=== PATIENT | male | born 1970 | race Caucasian/White ===

== ENCOUNTER 2017-06-02 10:12 | Observation (INO) | payer OTHER ==
[2017-06-02] MEDS ORDERED: Iohexol 240 (50 ml) PO STA (11:10)
--- NOTE | 2017-06-02 11:18 | C.PDOC ---
History Of Present Illness 47 year old male presents to the ED for evaluation of severe periumbilical abdominal pain which began at around 0400 today. Patient states he took one tablet of Advil at 0800 today. As he was walking from his kitchen to bedroom, patient suddenly felt dizzy, began sweating and had a syncopal episode which lasted several seconds (as witnessed by his ). Patient states his last bowel movement was last night, and was formed and brown. Patient currently denies headache, chest pain, history of syncopal episodes, nausea, vomiting and diarrhea. Patient has history of bladder cancer, for which he was treated for in 2009. Time Seen by Provider: 06/02/17 10:43 Chief Complaint (Nursing): Abdominal Pain History Per: Patient, Family () History/Exam Limitations: no limitations Onset/Duration Of Symptoms: Hrs Current Symptoms Are (Timing): Still Present Severity: Severe Location Of Pain/Discomfort: Periumbilical Quality Of Discomfort: "Pain" Associated Symptoms: denies: Nausea, Vomiting, Diarrhea Last Bowel Movement: Yesterday Additional History Per: Patient Past Medical History Reviewed: Historical Data, Nursing Documentation, Vital Signs Vital Signs: Last Vital Signs Temp 98.0 F 06/02/17 18:36 Pulse 118 H 06/02/17 18:36 Resp 20 06/02/17 18:36 BP 128/73 06/02/17 18:36 Pulse Ox 96 06/02/17 18:36 - Medical History PMH: Hypercholesterolemia Surgical History: No Surg Hx Family History: States: Unknown Family Hx - Social History Hx Alcohol Use: No Hx Substance Use: No - Immunization History Hx Influenza Vaccination: No Hx Pneumococcal Vaccination: No Review Of Systems Constitutional: Positive for: Sweats Cardiovascular: Negative for: Chest Pain Gastrointestinal: Positive for: Abdominal Pain (periumbilical ). Negative for: Nausea, Vomiting, Diarrhea Neurological: Positive for: Dizziness, Other (syncopal episode ). Negative for : Headache Physical Exam - Physical Exam Appears: Non-toxic, No Acute Distress Skin: Normal Color, Warm, Dry Head: Atraumatic, Normacephalic Eye(s): bilateral: Normal Inspection Oral Mucosa: Moist Neck: Supple Chest: Symmetrical, No Deformity, No Tenderness Cardiovascular: Rhythm Regular, No Murmur Respiratory: Normal Breath Sounds, No Rales, No Rhonchi, No Wheezing Gastrointestinal/Abdominal: Soft, Tenderness (periumbilical ), No Guarding, No Rebound Extremity: Normal ROM, Capillary Refill (less than 2 seconds ) Neurological/Psych: Oriented x3, Normal Speech, Normal Cognition Gait: Steady ED Course And Treatment - Laboratory Results Result Diagrams: 06/02/17 11:31 06/02/17 11:31 Lab Interpretation: Abnormal (leukocytosis) ECG: Interpreted By Me ECG Rhythm: Sinus Bradycardia Rate From EC O2 Sat by Pulse Oximetry: 97 (on RA) Pulse Ox Interpretation: Normal - CT Scan/US CT A/P Other Rad Studies (CT/US): Interpreted By Me, Read By Radiologist, Radiology Report Reviewed CT/US Interpretation: PROCEDURE: CT Abdomen and Pelvis with contrast. HISTORY : Abdominal pain. COMPARISON: None. TECHNIQUE: CT scan of the abdomen and pelvis was performed after intravenous administration of contrast. Oral contrast was administered. Coronal and sagittal reformatted images were obtained. Contrast dose: 150 mL Visipaque. Radiation dose: Total exam DLP = 774.56 mGy-cm. This CT exam was performed using one or more of the following dose reduction techniques: Automated exposure control, adjustment of the mA and/ or kV according to patient size, and/or use of iterative reconstruction technique. FINDINGS: LOWER THORAX: The right lung base is clear. There is subsegmental atelectasis in the left lower lobe. LIVER: The liver is normal in size and there is diffuse fatty infiltration. No gross lesion or ductal dilatation. GALLBLADDER AND BILE DUCTS: There are no calcified gallstones. PANCREAS: Normal in size with homogeneous enhancement. No gross lesion or ductal dilatation. SPLEEN: Normal in size and appearance. ADRENALS: No discrete nodule. KIDNEYS AND URETERS: Both kidneys are normal in size and there is homogeneous enhancement. No hydronephrosis. No solid mass. VASCULATURE : No aortic aneurysm. BOWEL: The small bowel loops are normal in caliber. The colon is decompressed. There is colonic diverticulosis without CT evidence for focal diverticulitis. No bowel dilatation or obstruction. APPENDIX: The appendix is markedly distended, measures 15 mm, fluid-filled with mild wall enhancement and inflammatory changes in the surrounding mesenteric fat. PERITONEUM: No free fluid. No free air. LYMPH NODES: No enlarged lymph nodes. BLADDER: Unremarkable. REPRODUCTIVE: Unremarkable. BONES: No acute fracture. OTHER FINDINGS: Bilateral small fat containing inguinal hernias. IMPRESSION: 1. Acute appendicitis. No perforation or abscess. 2. Colonic diverticulosis without CT evidence for acute diverticulitis. 3. Fatty liver. Progress Note: Bloodwork, UA, CT A/P, and EKG ordered and reviewed. Morphine IVP and Zofran IVP. Medical Decision Making Medical Decision Making: Case discussed with pmd Kaveh Underwood, who will consult the pt, however, to be admitted to Dr. Rosas. Dr. Rosas agreed to admit the pt. Disposition Counseled Patient/Family Regarding: Studies Performed, Diagnosis - Disposition Disposition: HOSPITALIZED Disposition Time: 14:22 Condition: FAIR - Clinical Impression Clinical Impression: Acute appendicitis, Syncope - PA / SALES REPRESENTATIVE PUBLIC UTILITIES / Resident Statement MD/DO has reviewed & agrees with the documentation as recorded. - Scribe Statement The provider has reviewed the documentation as recorded by the Scribe (Simona Lynn) All medical record entries made by the Scribe were at my direction and personally dictated by me. I have reviewed the chart and agree that the record accurately reflects my personal performance of the history, physical exam, medical decision making, and the department course for this patient. I have also personally directed, reviewed, and agree with the discharge instructions and disposition. Decision To Admit - Pt Status Changed To: Hospital Disposition Of: Inpatient - Admit Certification Admit to Inpatient:: After my assessment, the patient will require hospitalization for at least two midnights. This is because of the severity of symptoms shown, intensity of services needed, and/or the medical risk in this patient being treated as an outpatient. - InPatient: Physician Admission Certification:: pt with acute appendicitis and syncopal episode - . Bed Request Type: Regular Admitting Physician: Brian Dobbs Patient Diagnosis: Acute appendicitis, Syncope
[2017-06-02] MEDS ORDERED: Iohexol 240 (50 ml) ONE (11:26)
[2017-06-02 11:42] LABS: BASO % 0.3 % (0.0-2.0); EOS # 0.1 K/uL (0.0-0.7); EOS % 0.6 % (0.0-4.0); HEMATOCRIT 44.3 % (35.0-51.0); LYMPH % 7.2 % (20.0-40.0); MEAN CELL VOLUME 90.1 fL (80.0-94.0); MEAN CORPUSCULAR HEMOGLOBIN 30.5 pg (27.0-31.0); MEAN CORPUSCULAR HGB CONC 33.8 g/dL (33.0-37.0); MEAN PLATELET VOLUME 8.9 fL (7.2-11.7); MONO # 0.5 K/uL (0.0-0.8); MONO % 4.1 % (0.0-10.0); PLATELET COUNT 235 K/uL (130-400); RED CELL DISTRIBUTION WIDTH 13.3 % (11.5-14.5); WHITE BLOOD COUNT 13.4 K/uL (4.8-10.8)
[2017-06-02 12:03] LABS: CHLORIDE 98 mmol/L (98-107); POTASSIUM 4.2 mmol/L (3.6-5.2); SODIUM 133 mmol/L (132-148)
[2017-06-02 12:05] LABS: ALB/GLOB RATIO 1.2 (1.0-2.1); ALKALINE PHOSPHATASE 57 U/L (38-126); AST/SGOT 32 U/L (17-59); BILIRUBIN,TOTAL 0.6 mg/dL (0.2-1.3); CARBON DIOXIDE 24 mmol/L (22-30); GFR AFRICAN-AMERICAN > 60; TOTAL PROTEIN 8.2 g/dL (6.3-8.3)
[2017-06-02 12:06] LABS: ALT/SGPT 66 U/L (21-72); BLOOD UREA NITROGEN 16 mg/dL (9-20); CALCIUM 8.7 mg/dl (8.6-10.4); GLUCOSE,RANDOM 99 mg/dL (75-110)
[2017-06-02 12:20] LABS: EOSINOPHIL 1 % (0-4); NEUTROPHIL 88 % (50-75); TOTAL CELLS COUNTED 100
[2017-06-02] MEDS ORDERED: Iodixanol 320 mg/ml 150 ml Bottle IV ONE (12:59)
[2017-06-02 13:16] LABS: RBC URINE 1 /hpf (0-3); URINE BILIRUBIN NEGATIVE (NEGATIVE); URINE BLOOD NEGATIVE (NEGATIVE); URINE COLOR Yellow (YELLOW); URINE GLUCOSE (UA) NORMAL (Normal); URINE KETONE NEGATIVE (NEGATIVE); URINE LEUKOCYTE ESTERASE NEG Leu/uL (Negative); URINE PROTEIN 2+ mg/dL (NEGATIVE); URINE UROBILINOGEN NORMAL mg/dL (0.2-1.0); WBC URINE 2 /hpf (0-5)
--- NOTE | 2017-06-02 14:00 | CT ---
PROCEDURE: CT Abdomen and Pelvis with contrast HISTORY: Abdominal pain COMPARISON: None. TECHNIQUE: CT scan of the abdomen and pelvis was performed after intravenous administration of contrast. Oral contrast was administered. Coronal and sagittal reformatted images were obtained. Contrast dose: 150 mL Visipaque Radiation dose: Total exam DLP = 774.56 mGy-cm. This CT exam was performed using one or more of the following dose reduction techniques: Automated exposure control, adjustment of the mA and/or kV according to patient size, and/or use of iterative reconstruction technique. FINDINGS: LOWER THORAX: The right lung base is clear. There is subsegmental atelectasis in the left lower lobe. LIVER: The liver is normal in size and there is diffuse fatty infiltration. No gross lesion or ductal dilatation. GALLBLADDER AND BILE DUCTS: There are no calcified gallstones. PANCREAS: Normal in size with homogeneous enhancement. No gross lesion or ductal dilatation. SPLEEN: Normal in size and appearance. ADRENALS: No discrete nodule. KIDNEYS AND URETERS: Both kidneys are normal in size and there is homogeneous enhancement. No hydronephrosis. No solid mass. VASCULATURE: No aortic aneurysm. BOWEL: The small bowel loops are normal in caliber. The colon is decompressed. There is colonic diverticulosis without CT evidence for focal diverticulitis. No bowel dilatation or obstruction. APPENDIX: The appendix is markedly distended, measures 15 mm, fluid-filled with mild wall enhancement and inflammatory changes in the surrounding mesenteric fat. PERITONEUM: No free fluid. No free air. LYMPH NODES: No enlarged lymph nodes. BLADDER: Unremarkable. REPRODUCTIVE: Unremarkable. BONES: No acute fracture. OTHER FINDINGS: Bilateral small fat containing inguinal hernias. IMPRESSION: 1. Acute appendicitis. No perforation or abscess. 2. Colonic diverticulosis without CT evidence for acute diverticulitis. 3. Fatty liver.
[2017-06-02] MEDS ORDERED: Piperacillin/Tazobact 3.375 gm 100 ML IV STA (14:12)
[2017-06-02] MEDS ORDERED: Lactated Ringer's 1,000 ML IV ONE ×2 (14:20→15:20)
--- NOTE | 2017-06-02 14:37 | CP.PCM.CON ---
<Reece Cruz - Last Filed: 06/02/17 18:01> History of Present Illness - History of Present Illness History of Present Illness: General Surgery Consult Note for Dr. Dobbs Reason for Consult: Appendicitis 47 M with PMH of Bladder CA and HLD presents to [facility] ED with complaint of RLQ abdominal pain. Patients states that pain began at 4 am Sunday morning. He reports sudden onset. He states that he had a similar pain a few months ago. He reports associated nausea, fever and chills. He rates pain as moderate in severity. He describes pain as constant and sharp that started in RLQ and progressed to umbilical region. Denies alleviating or exacerbating factors. Patient reports no other complaints at this time. PMD: Dr. Kaveh Banks Uro: Dr. Coyle Uro ONC: Dr. Randall PMH: Bladder ca, HLD Meds: Lipitor Allergy: Denies PSH: Bladder Ca removal (unsure of procedure) Hosp: Denies FH: unknown Social: denies tobacco and illicit drug use, social alcohol use Review of Systems - Review of Systems All systems: reviewed and no additional remarkable complaints except (fever/ chills, nausea, abdominal pain) Past Patient History - Infectious Disease Hx of Infectious Diseases: None - Past Social History Smoking Status: Never Smoked - CARDIAC Hx Hypercholesterolemia: Yes - GENITOURINARY/GYNECOLOGICAL Hx Bladder Cancer: Yes (remission) - PSYCHIATRIC Hx Substance Use: No - SURGICAL HISTORY Other/Comment: bladder sx Meds Allergies/Adverse Reactions: Allergies Allergy/AdvReac Type Severity Reaction Status Date / Time No Known Allergies Allergy Verified 06/02/17 10:22 - Medications Medications: Current Medications Piperacillin Sod/Tazobactam Sod (Zosyn 3.375 In Ns 100ml) 100 mls @ 200 mls/hr IV STAT STA Stop: 06/02/17 14:41 Lactated Ringer's (Lactated Ringer's) 1,000 mls @ 1,000 mls/hr IV .Q1H ONE Stop: 06/02/17 15:19 Physical Exam - Constitutional Appears: No Acute Distress, Other (shivering) - Head Exam Head Exam: ATRAUMATIC, NORMOCEPHALIC - Eye Exam Eye Exam: EOMI, Normal appearance Pupil Exam: PERRL - ENT Exam ENT Exam: Mucous Membranes Moist - Neck Exam Neck exam: Positive for: Normal Inspection - Respiratory Exam Respiratory Exam: NORMAL BREATHING PATTERN - Cardiovascular Exam Cardiovascular Exam: REGULAR RHYTHM - GI/Abdominal Exam GI & Abdominal Exam: Guarding (voluntary on deep palpation), Normal Bowel Sounds , Soft, Tenderness (RLQ, periumbilical region). absent: Distended, Firm, Rebound, Rigid Additional comments: (+) McBurney's point - Extremities Exam Extremities exam: Positive for: normal capillary refill, pedal pulses present - Back Exam Back exam: absent: CVA tenderness (L), CVA tenderness (R) - Neurological Exam Neurological exam: Alert, CN II-XII Intact, Oriented x3 - Psychiatric Exam Psychiatric exam: Normal Affect, Normal Mood - Skin Skin Exam: Dry, Intact, Normal Color, Warm Results - Vital Signs Recent Vital Signs: Last Vital Signs Temp 97.7 F 06/02/17 10:23 Pulse 59 L 06/02/17 10:23 Resp 16 06/02/17 10:23 BP 123/75 06/02/17 10:23 Pulse Ox 97 06/02/17 14:27 - Labs Result Diagrams: 06/02/17 11:31 06/02/17 11:31 Labs: Laboratory Results - last 24 hr 06/02/17 06/02/17 06/02/17 11:31 11:31 12:56 WBC 13.4 H RBC 4.92 Hgb 15.0 Hct 44.3 MCV 90.1 MCH 30.5 MCHC 33.8 RDW 13.3 Plt Count 235 MPV 8.9 Neut % (Auto) 87.8 H Lymph % (Auto) 7.2 L Lynn % (Auto) 4.1 Eos % (Auto) 0.6 Baso % (Auto) 0.3 Neut # 11.8 H Lymph # 1.0 Lynn # 0.5 Eos # 0.1 Baso # 0.0 Neutrophils % (Manual) 88 H Lymphocytes % (Manual) 7 L Monocytes % (Manual) 4 Eosinophils % (Manual) 1 Platelet Estimate Normal RBC Morphology Normal Sodium 133 Potassium 4.2 Chloride 98 Carbon Dioxide 24 Anion Gap 15 BUN 16 Creatinine 0.9 Est GFR ( Amer) > 60 Est GFR (Non-Af Amer) > 60 Random Glucose 99 Calcium 8.7 Total Bilirubin 0.6 AST 32 ALT 66 Alkaline Phosphatase 57 Total Protein 8.2 Albumin 4.4 Globulin 3.8 Albumin/Globulin Ratio 1.2 Lipase 157 Urine Color Yellow Urine Clarity Clear Urine pH 6.0 Ur Specific Palmer 1.024 Urine Protein 2+ H Urine Glucose (UA) Normal Urine Ketones Negative Urine Blood Negative Urine Nitrate Negative Urine Bilirubin Negative Urine Urobilinogen Normal Ur Leukocyte Esterase Neg Urine WBC (Auto) 2 Urine RBC (Auto) 1 Assessment & Plan - Assessment and Plan (Free Text) Plan: 47 M with acute appendicitis -NPO, going [facility] for Laparoscopic Appendectomy -IV fluids -IV antibiotics -Analgesics/Anti-emetics PRN -Discussed with Dr. Dilia Cruz PGY1 <Brian Dobbs - Last Filed: 06/02/17 20:40> Meds - Medications Medications: Current Medications Acetaminophen (Tylenol 325mg Tab) 650 mg PO Q6 PRN PRN Reason: Fever >100.4 F Hydromorphone HCl (Dilaudid) 0.5 mg IVP Q4H PRN PRN Reason: Pain, severe (8-10) Lactated Ringer's (Lactated Ringer's) 1,000 mls @ 150 mls/hr IV .Q6H40M [facility] Last Admin: 06/02/17 19:19 Dose: 150 mls/hr Piperacillin Sod/Tazobactam Sod (Zosyn 3.375 Gm Iv Premix) 3.375 gm in 50 mls @ 100 mls/hr IVPB Q6H [facility] Last Admin: 06/02/17 16:46 Dose: 50 mls Ondansetron HCl (Zofran Inj) 4 mg IVP Q6H PRN PRN Reason: Nausea/Vomiting Oxycodone/Acetaminophen (Percocet 5/325 Mg Tab) 1 tab PO Q4H PRN PRN Reason: Pain, moderate (4-7) Stop: 06/05/17 16:41 Rosuvastatin Calcium (Crestor) 10 mg PO HS [facility] Results - Vital Signs Recent Vital Signs: Last Vital Signs Temp 98.0 F 06/02/17 18:36 Pulse 118 H 06/02/17 18:36 Resp 20 06/02/17 18:36 BP 128/73 06/02/17 18:36 Pulse Ox 97 06/02/17 18:40 - Labs Result Diagrams: 06/02/17 11:31 06/02/17 11:31 Labs: Laboratory Results - last 24 hr 06/02/17 06/02/17 06/02/17 11:31 11:31 12:56 WBC 13.4 H RBC 4.92 Hgb 15.0 Hct 44.3 MCV 90.1 MCH 30.5 MCHC 33.8 RDW 13.3 Plt Count 235 MPV 8.9 Neut % (Auto) 87.8 H Lymph % (Auto) 7.2 L Lynn % (Auto) 4.1 Eos % (Auto) 0.6 Baso % (Auto) 0.3 Neut # 11.8 H Lymph # 1.0 Lynn # 0.5 Eos # 0.1 Baso # 0.0 Neutrophils % (Manual) 88 H Lymphocytes % (Manual) 7 L Monocytes % (Manual) 4 Eosinophils % (Manual) 1 Platelet Estimate Normal RBC Morphology Normal PT INR APTT Sodium 133 Potassium 4.2 Chloride 98 Carbon Dioxide 24 Anion Gap 15 BUN 16 Creatinine 0.9 Est GFR ( Amer) > 60 Est GFR (Non-Af Amer) > 60 Random Glucose 99 Calcium 8.7 Total Bilirubin 0.6 AST 32 ALT 66 Alkaline Phosphatase 57 Total Protein 8.2 Albumin 4.4 Globulin 3.8 Albumin/Globulin Ratio 1.2 Lipase 157 Urine Color Yellow Urine Clarity Clear Urine pH 6.0 Ur Specific Palmer 1.024 Urine Protein 2+ H Urine Glucose (UA) Normal Urine Ketones Negative Urine Blood Negative Urine Nitrate Negative Urine Bilirubin Negative Urine Urobilinogen Normal Ur Leukocyte Esterase Neg Urine WBC (Auto) 2 Urine RBC (Auto) 1 Blood Type Blood Type Confirm Antibody Screen 06/02/17 06/02/17 14:43 14:43 WBC RBC Hgb Hct MCV MCH MCHC RDW Plt Count MPV Neut % (Auto) Lymph % (Auto) Lynn % (Auto) Eos % (Auto) Baso % (Auto) Neut # Lymph # Lynn # Eos # Baso # Neutrophils % (Manual) Lymphocytes % (Manual) Monocytes % (Manual) Eosinophils % (Manual) Platelet Estimate RBC Morphology PT 11.5 INR 1.0 APTT 26 Sodium Potassium Chloride Carbon Dioxide Anion Gap BUN Creatinine Est GFR ( Amer) Est GFR (Non-Af Amer) Random Glucose Calcium Total Bilirubin AST ALT Alkaline Phosphatase Total Protein Albumin Globulin Albumin/Globulin Ratio Lipase Urine Color Urine Clarity Urine pH Ur Specific Palmer Urine Protein Urine Glucose (UA) Urine Ketones Urine Blood Urine Nitrate Urine Bilirubin Urine Urobilinogen Ur Leukocyte Esterase Urine WBC (Auto) Urine RBC (Auto) Blood Type A POSITIVE Blood Type Confirm A POSITIVE Antibody Screen Negative Attending/Attestation - Attestation I have personally seen and examined this patient.: Yes I have fully participated in the care of the patient.: Yes I have reviewed all pertinent clinical information: Yes Notes (Text): Pt was seen and examined at bedside Agree with above note and assessment Pt with Acute Appendicitis with Abdominal pain Abdominal RLQ tenderness present Labs and radiology reviewed. NPO, IVF Consent OR for Lap Appendectomy today C/W IV antibiotics Plan d.w pt in detail. Risk and benefit explained in detail
[2017-06-02] MEDS ORDERED: Lactated Ringer's 1,000 ML ONE (14:43)
[2017-06-02] MEDS ORDERED: Piperacill/Tazo 3.375gm in Dex 3.375 GM/50 ML BAG IVPB ONE (15:00)
[2017-06-02] MEDS ORDERED: ceFAZolin IV 2 gm in Dextrose 2 GM/50 ML BAG IVPB ONE (15:18)
[2017-06-02] MEDS ORDERED: Bupivacaine-Epi 0.25%-1:200,000 PF Inj ONE (15:18)
[2017-06-02] MEDS ORDERED: Lidocaine 1% Inj (20ml) ONE (15:19)
[2017-06-02] MEDS ORDERED: Midazolam 2 MG/2 ML VIAL ONE (15:21)
[2017-06-02] MEDS ORDERED: Rocuronium 10 mg/ml (5 ml) ONE (15:21)
[2017-06-02] MEDS ORDERED: Succinylcholine Chloride 20 mg/ml Syr (5 ml) IV ONE (15:21)
[2017-06-02] MEDS ORDERED: Propofol 10 mg/ml Inj (20 ML) ONE ×2 (15:22→16:11)
[2017-06-02] MEDS ORDERED: Neostigmine Methylsulfate 3mg/3ml Syringe IV ONE (16:16)
[2017-06-02] MEDS ORDERED: HYDROmorphone 0.5 mg/0.5 ml ISec IVP PRN ×2 (16:16→16:39)
--- NOTE | 2017-06-02 16:38 | PCM.SURG1 ---
Surgeon's Initial Post Op Note - Surgeon's Notes Surgeon: Dr. Dobbs It Sales Consultant: Anthony PGY1 Type of Anesthesia: General Endo Anesthesia Administered By: Dr. Holland Pre-Operative Diagnosis: Appendicitis Operative Findings: see operative report Post-Operative Diagnosis: Appendicitis Operation Performed: Laparoscopic Appendectomy Specimen/Specimens Removed: Appendix Estimated Blood Loss: EBL {In ML}: 10 Blood Products Given: N/A Drains Used: No Drains Post-Op Condition: Good Date of Surgery/Procedure: 06/02/17 Time of Surgery/Procedure: 15:30
[2017-06-02] MEDS: Piperacill/Tazo 3.375gm in Dex 3.375 GM/50 ML BAG IVPB SCH ×2 (16:46→22:43)
[2017-06-02] MEDS: Lactated Ringer's 1,000 ML IV SCH (19:19)
[2017-06-03] MEDS: Lactated Ringer's 1,000 ML IV SCH ×2 (02:18→02:19)
[2017-06-03] MEDS: Piperacill/Tazo 3.375gm in Dex 3.375 GM/50 ML BAG IVPB SCH ×4 (04:20→22:39)
--- NOTE | 2017-06-03 05:51 | OP ---
PROCEDURE DATE: 06/02/2017 PREOPERATIVE DIAGNOSES: 1. Acute appendicitis. 2. Leukocytosis. POSTOPERATIVE DIAGNOSES: 1. Acute appendicitis with abscess. 2. Leukocytosis. PROCEDURE DONE: 1. Laparoscopic appendectomy. 2. Laparoscopic drainage of appendicular abscess. SURGEON: Dr. Dobbs. MANAGER SAFE: Reece PGY-1 resident. TYPE OF ANESTHESIA: General endotracheal tube anesthesia. ESTIMATED BLOOD LOSS: Around 10 mL. DRAINS: None. PATHOLOGY: Appendix was sent to the pathology. COMPLICATIONS: None. INTRAOPERATIVE FINDINGS: The patient had appendix filled with pus and it was distended, thickened and edematous. On intraoperative steps, this is a 47-year-old male who was diagnosed with acute appendicitis with a large 15 mm dilated appendix with leukocytosis and the patient was consented for laparoscopic appendectomy, possible open. The patient was brought to the OR, placed supine in operating table. After induction of the anesthesia, abdomen was prepped and draped in a usual sterile fashion. Supraumbilical transverse incision was made after incising the skin and subcutaneous tissue, the patient was incised in the line of incision. The Lisset port was placed, pneumo was created. Another 5 mm port was placed in the suprapubic region and 12 mm port was placed in the left lower quadrant. After that grasper and dissector was introduced and the patient was placed in right side head up position and omentum was mobilized and lysis of adhesion was done to isolate the appendix. The appendix appeared to be extremely thickened and edematous, and the appendix was mobilized from the lateral abdominal wall. During the manipulation, the pus was started draining from the appendicular abscess and the abscess was drained and suction irrigation of the abscess was done and after that mesoappendix was resected with Harmonic scalpel. Base of the appendix was resected with JOHN. Appendix was taken and the Endo Catch bag taken out through the umbilical port site, and sent to the table for pathology. There was appropriate hemostasis in each and every part of the procedure. After suction irrigation of the periappendicular area as well as the pelvic area, all the fluid was suctioned out and appendix was sent to the table for pathology. All the ports were taken out under vision, pneumo was deflated. Umbilical port site was closed in two layers, the fascia with 0-Vicryl interrupted sutures, skin with the 4-0 Monocryl, and dry sterile dressing was applied. A 15 mm port site was also closed in two layers, the subcutaneous with a 0-Vicryl and skin with the 4-0 Monocryl, and the patient was extubated in OR, sent to the postanesthesia care unit in stable condition. Brian Dobbs MD MTDD
[2017-06-03 08:33] LABS: HEMATOCRIT 40.4 % (35.0-51.0); MEAN CELL VOLUME 89.1 fL (80.0-94.0); MEAN CORPUSCULAR HEMOGLOBIN 30.6 pg (27.0-31.0); MEAN CORPUSCULAR HGB CONC 34.4 g/dL (33.0-37.0); MEAN PLATELET VOLUME 8.9 fL (7.2-11.7); RED CELL DISTRIBUTION WIDTH 13.6 % (11.5-14.5); WHITE BLOOD COUNT 11.1 K/uL (4.8-10.8)
[2017-06-03 08:49] LABS: CHLORIDE 100 mmol/L (98-107); POTASSIUM 3.6 mmol/L (3.6-5.2); SODIUM 133 mmol/L (132-148)
[2017-06-03 08:51] LABS: GFR AFRICAN-AMERICAN > 60
[2017-06-03 08:52] LABS: ALKALINE PHOSPHATASE 48 U/L (38-126); ALT/SGPT 58 U/L (21-72); AST/SGOT 23 U/L (17-59); BILIRUBIN,TOTAL 0.7 mg/dL (0.2-1.3); BLOOD UREA NITROGEN 11 mg/dL (9-20); CALCIUM 8.2 mg/dl (8.6-10.4); CARBON DIOXIDE 25 mmol/L (22-30); GLUCOSE,RANDOM 94 mg/dL (75-110)
[2017-06-03] MEDS: Oxycodone/Acetaminophen 5/325 mg Tab PO PRN ×2 (09:25→21:54)
--- NOTE | 2017-06-03 11:40 | CP.PCM.PN ---
<Danish Abreu - Last Filed: 06/03/17 11:38> Subjective - Date & Time of Evaluation Date of Evaluation: 06/03/17 Time of Evaluation: 10:50 - Subjective Subjective: General Surgery pt S&E, NAEO. Tolerated liquids, Mild pain controlled with meds. no other complaints Objective - Vital Signs/Intake and Output Vital Signs (last 24 hours): Temp Pulse Resp BP Pulse Ox 98.3 F 76 18 104/63 98 06/03/17 08:18 06/03/17 08:18 06/03/17 08:18 06/03/17 08:18 06/03/17 08:18 Intake and Output: 06/03/17 06/03/17 06:59 18:59 Intake Total 2190 Output Total 2300 Balance -110 - Medications Medications: Current Medications Acetaminophen (Tylenol 325mg Tab) 650 mg PO Q6 PRN PRN Reason: Fever >100.4 F Hydromorphone HCl (Dilaudid) 0.5 mg IVP Q4H PRN PRN Reason: Pain, severe (8-10) Last Admin: 06/03/17 02:14 Dose: 0.5 mg Piperacillin Sod/Tazobactam Sod (Zosyn 3.375 Gm Iv Premix) 3.375 gm in 50 mls @ 100 mls/hr IVPB Q6H [facility] Last Admin: 06/03/17 10:01 Dose: 100 mls/hr Potassium Chloride/Dextrose/Sod Cl (Potassium Chl 20 Meq In D5-1/2ns) 1,000 mls @ 150 mls/hr IV .Q6H40M [facility] Ondansetron HCl (Zofran Inj) 4 mg IVP Q6H PRN PRN Reason: Nausea/Vomiting Oxycodone/Acetaminophen (Percocet 5/325 Mg Tab) 1 tab PO Q4H PRN PRN Reason: Pain, moderate (4-7) Stop: 06/05/17 16:41 Last Admin: 06/03/17 09:25 Dose: 1 tab Pantoprazole Sodium (Protonix Inj) 40 mg IVP DAILY [facility] Last Admin: 06/03/17 09:16 Dose: 40 mg Rosuvastatin Calcium (Crestor) 10 mg PO HS [facility] Last Admin: 06/02/17 22:42 Dose: 10 mg - Labs Labs: 06/03/17 08:14 06/03/17 08:14 PT 11.5 SECONDS (9.7-12.2) 06/02/17 14:43 INR 1.0 06/02/17 14:43 APTT 26 SECONDS (21-34) 06/02/17 14:43 - Constitutional Appears: Non-toxic, No Acute Distress - Head Exam Head Exam: ATRAUMATIC, NORMOCEPHALIC - Respiratory Exam Respiratory Exam: NORMAL BREATHING PATTERN. absent: Respiratory Distress - GI/Abdominal Exam GI & Abdominal Exam: Guarding (mild), Soft, Tenderness (at incisions). absent: Distended, Firm, Rigid Additional comments: dressing C/D/I - Neurological Exam Neurological Exam: Alert, Awake - Skin Skin Exam: Dry, Warm Assessment and Plan - Assessment and Plan (Free Text) Assessment: 47M S/P Lap appendectomy POD#1 Plan: WBC trending down. Advanced diet to regular for lunch. D/C planning D/W Dr. Dilia Abreu PGY4 <Brian Dobbs - Last Filed: 06/06/17 18:47> Objective - Vital Signs/Intake and Output Vital Signs (last 24 hours): Temp Pulse Resp BP Pulse Ox 97.2 F L 94 H 20 139/82 96 06/04/17 15:35 06/04/17 15:35 06/04/17 15:35 06/04/17 15:35 06/04/17 15:35 - Labs Labs: 06/03/17 08:14 06/03/17 08:14 PT 11.5 SECONDS (9.7-12.2) 06/02/17 14:43 INR 1.0 06/02/17 14:43 APTT 26 SECONDS (21-34) 06/02/17 14:43 Attending/Attestation - Attestation I have personally seen and examined this patient.: Yes I have fully participated in the care of the patient.: Yes I have reviewed all pertinent clinical information, including history, physical exam and plan: Yes Notes (Text): Pt was seen and examined at bedside Agree with above note and assessment Pt is s/p Lap Appendectomy and Drainage of abscess C/w current IV antibiotics Plan d.w pt in detail.
[2017-06-03] MEDS: Potassium Ch 20mEq in D5-1/2NS 1,000 ML IV SCH ×2 (12:07→22:40)
--- NOTE | 2017-06-03 15:59 | CP.PCM.DIS ---
Provider - Provider Date of Admission: 06/02/17 14:20 Attending physician: Brian Dobbs MD Time Spent in preparation of Discharge (in minutes): 20 Diagnosis - Discharge Diagnosis (1) Acute appendicitis Status: Resolved Hospital Course - Lab Results Lab Results: Most Recent Lab Values WBC 11.1 K/uL (4.8-10.8) H 06/03/17 08:14 RBC 4.53 Mil/uL (4.40-5.90) 06/03/17 08:14 Hgb 13.9 g/dL (12.0-18.0) 06/03/17 08:14 Hct 40.4 % (35.0-51.0) 06/03/17 08:14 MCV 89.1 fL (80.0-94.0) 06/03/17 08:14 MCH 30.6 pg (27.0-31.0) 06/03/17 08:14 MCHC 34.4 g/dL (33.0-37.0) 06/03/17 08:14 RDW 13.6 % (11.5-14.5) 06/03/17 08:14 Plt Count 196 K/uL (130-400) 06/03/17 08:14 MPV 8.9 fL (7.2-11.7) 06/03/17 08:14 Neut % (Auto) 87.8 % (50.0-75.0) H 06/02/17 11:31 Lymph % (Auto) 7.2 % (20.0-40.0) L 06/02/17 11:31 [place] % (Auto) 4.1 % (0.0-10.0) 06/02/17 11:31 Eos % (Auto) 0.6 % (0.0-4.0) 06/02/17 11:31 Baso % (Auto) 0.3 % (0.0-2.0) 06/02/17 11:31 Neut # 11.8 K/uL (1.8-7.0) H 06/02/17 11:31 Lymph # 1.0 K/uL (1.0-4.3) 06/02/17 11:31 [place] # 0.5 K/uL (0.0-0.8) 06/02/17 11:31 Eos # 0.1 K/uL (0.0-0.7) 06/02/17 11:31 Baso # 0.0 K/uL (0.0-0.2) 06/02/17 11:31 Neutrophils % (Manual) 88 % (50-75) H 06/02/17 11:31 Lymphocytes % (Manual) 7 % (20-40) L 06/02/17 11:31 Monocytes % (Manual) 4 % (0-10) 06/02/17 11:31 Eosinophils % (Manual) 1 % (0-4) 06/02/17 11:31 Platelet Estimate Normal (NORMAL) 06/02/17 11:31 RBC Morphology Normal 06/02/17 11:31 PT 11.5 SECONDS (9.7-12.2) 06/02/17 14:43 INR 1.0 06/02/17 14:43 APTT 26 SECONDS (21-34) 06/02/17 14:43 Sodium 133 mmol/L (132-148) 06/03/17 08:14 Potassium 3.6 mmol/L (3.6-5.2) 06/03/17 08:14 Chloride 100 mmol/L (98-107) 06/03/17 08:14 Carbon Dioxide 25 mmol/L (22-30) 06/03/17 08:14 Anion Gap 12 (10-20) 06/03/17 08:14 BUN 11 mg/dL (9-20) 06/03/17 08:14 Creatinine 1.0 mg/dL (0.8-1.5) 06/03/17 08:14 Est GFR ( Amer) > 60 06/03/17 08:14 Est GFR (Non-Af Amer) > 60 06/03/17 08:14 Random Glucose 94 mg/dL (75-110) 06/03/17 08:14 Calcium 8.2 mg/dl (8.6-10.4) L 06/03/17 08:14 Total Bilirubin 0.7 mg/dL (0.2-1.3) 06/03/17 08:14 AST 23 U/L (17-59) 06/03/17 08:14 ALT 58 U/L (21-72) 06/03/17 08:14 Alkaline Phosphatase 48 U/L (38-126) 06/03/17 08:14 Total Protein 7.0 g/dL (6.3-8.3) 06/03/17 08:14 Albumin 3.5 g/dL (3.5-5.0) D 06/03/17 08:14 Globulin 3.4 gm/dL (2.2-3.9) 06/03/17 08:14 Albumin/Globulin Ratio 1.0 (1.0-2.1) 06/03/17 08:14 Lipase 157 U/L (23-300) 06/02/17 11:31 Urine Color Yellow (YELLOW) 06/02/17 12:56 Urine Clarity Clear (Clear) 06/02/17 12:56 Urine pH 6.0 (5.0-8.0) 06/02/17 12:56 Ur Specific [place] 1.024 (1.003-1.030) 06/02/17 12:56 Urine Protein 2+ mg/dL (NEGATIVE) H 06/02/17 12:56 Urine Glucose (UA) Normal mg/dL (Normal) 06/02/17 12:56 Urine Ketones Negative mg/dL (NEGATIVE) 06/02/17 12:56 Urine Blood Negative (NEGATIVE) 06/02/17 12:56 Urine Nitrate Negative (NEGATIVE) 06/02/17 12:56 Urine Bilirubin Negative (NEGATIVE) 06/02/17 12:56 Urine Urobilinogen Normal mg/dL (0.2-1.0) 06/02/17 12:56 Ur Leukocyte Esterase Neg Jeanne/uL (Negative) 06/02/17 12:56 Urine WBC (Auto) 2 /hpf (0-5) 06/02/17 12:56 Urine RBC (Auto) 1 /hpf (0-3) 06/02/17 12:56 Blood Type A POSITIVE 06/02/17 14:43 Blood Type Confirm A POSITIVE 06/02/17 14:43 Antibody Screen Negative 06/02/17 14:43 - Hospital Course Hospital Course: 47M presented to the ED and was found to have acute appendicitis. He was taken to the OR for lap appendectomy. He did well post op and was able to be DCed on POD #1. Discharge Exam - Head Exam Head Exam: ATRAUMATIC, NORMOCEPHALIC - Eye Exam Eye Exam: EOMI. absent: Scleral icterus - ENT Exam ENT Exam: Mucous Membranes Moist - Respiratory Exam Respiratory Exam: NORMAL BREATHING PATTERN. absent: Respiratory Distress - Cardiovascular Exam Cardiovascular Exam: RRR, +S1, +S2 - GI/Abdominal Exam GI & Abdominal Exam: Soft, Tenderness (mild, appropriately at incision sites). absent: Distended, Firm, Guarding, Rebound, Rigid Additional comments: dressings D/I - Extremities Exam Extremities exam: normal capillary refill, pedal pulses present - Neurological Exam Neurological exam: Alert, Oriented x3 - Skin Skin Exam: Dry, Warm Discharge Plan - Follow Up Plan Condition: FAIR Disposition: HOME/ ROUTINE Instructions: Cephalexin (By mouth), Oxycodone/Acetaminophen (By mouth), Laxative, Stool Softeners (By mouth), Appendicitis (DC) Additional Instructions: Regular Diet Rxs in chart, finish antibiotic. use pain med if needed otherwise you may use ibuprofen or tylenol. Call for fever more than 101 or pain uncontrolled by medications. Ok to Shower, no baths, keep dressings dry. Ok to remove dressings in 3 days. Follow up with Dr. Dobbs in 1-2 weeks in his office No heavy lifting more than 10-15 pounds for 2 weeks. Referrals: Brian Dobbs MD [Staff Provider] -
[2017-06-04] MEDS: Potassium Ch 20mEq in D5-1/2NS 1,000 ML IV SCH ×2 (03:58→12:15)
[2017-06-04] MEDS: Piperacill/Tazo 3.375gm in Dex 3.375 GM/50 ML BAG IVPB SCH ×2 (04:00→10:12)
[2017-06-04] MEDS: Oxycodone/Acetaminophen 5/325 mg Tab PO PRN (04:10)
[2017-06-04] MEDS ORDERED: Pneumococcal 23-Valent Vaccine IM ONE (10:00)
[2017-06-04] MEDS ORDERED: Influenza Vaccine 60 mcg/0.5 mL SYR (4YR UP) IM ONE (10:00)
--- NOTE | 2017-06-04 13:57 | CARD ---
APPROVED REPORT EKG Measurement Heart [id number] <Conclusion> Sinus bradycardia Otherwise normal ECG
--- NOTE | 2017-06-04 15:18 | CP.PCM.DIS ---
Provider - Provider Date of Admission: 06/02/17 14:20 Attending physician: Brian Dobbs MD Time Spent in preparation of Discharge (in minutes): 45 Diagnosis - Discharge Diagnosis (1) Acute appendicitis Status: Resolved Comment: s/p laparoscopic appendectomy Hospital Course - Lab Results Lab Results: Most Recent Lab Values WBC 11.1 K/uL (4.8-10.8) H 06/03/17 08:14 RBC 4.53 Mil/uL (4.40-5.90) 06/03/17 08:14 Hgb 13.9 g/dL (12.0-18.0) 06/03/17 08:14 Hct 40.4 % (35.0-51.0) 06/03/17 08:14 MCV 89.1 fL (80.0-94.0) 06/03/17 08:14 MCH 30.6 pg (27.0-31.0) 06/03/17 08:14 MCHC 34.4 g/dL (33.0-37.0) 06/03/17 08:14 RDW 13.6 % (11.5-14.5) 06/03/17 08:14 Plt Count 196 K/uL (130-400) 06/03/17 08:14 MPV 8.9 fL (7.2-11.7) 06/03/17 08:14 Neut % (Auto) 87.8 % (50.0-75.0) H 06/02/17 11:31 Lymph % (Auto) 7.2 % (20.0-40.0) L 06/02/17 11:31 [place] % (Auto) 4.1 % (0.0-10.0) 06/02/17 11:31 Eos % (Auto) 0.6 % (0.0-4.0) 06/02/17 11:31 Baso % (Auto) 0.3 % (0.0-2.0) 06/02/17 11:31 Neut # 11.8 K/uL (1.8-7.0) H 06/02/17 11:31 Lymph # 1.0 K/uL (1.0-4.3) 06/02/17 11:31 [place] # 0.5 K/uL (0.0-0.8) 06/02/17 11:31 Eos # 0.1 K/uL (0.0-0.7) 06/02/17 11:31 Baso # 0.0 K/uL (0.0-0.2) 06/02/17 11:31 Neutrophils % (Manual) 88 % (50-75) H 06/02/17 11:31 Lymphocytes % (Manual) 7 % (20-40) L 06/02/17 11:31 Monocytes % (Manual) 4 % (0-10) 06/02/17 11:31 Eosinophils % (Manual) 1 % (0-4) 06/02/17 11:31 Platelet Estimate Normal (NORMAL) 06/02/17 11:31 RBC Morphology Normal 06/02/17 11:31 PT 11.5 SECONDS (9.7-12.2) 06/02/17 14:43 INR 1.0 06/02/17 14:43 APTT 26 SECONDS (21-34) 06/02/17 14:43 Sodium 133 mmol/L (132-148) 06/03/17 08:14 Potassium 3.6 mmol/L (3.6-5.2) 06/03/17 08:14 Chloride 100 mmol/L (98-107) 06/03/17 08:14 Carbon Dioxide 25 mmol/L (22-30) 06/03/17 08:14 Anion Gap 12 (10-20) 06/03/17 08:14 BUN 11 mg/dL (9-20) 06/03/17 08:14 Creatinine 1.0 mg/dL (0.8-1.5) 06/03/17 08:14 Est GFR ( Amer) > 60 06/03/17 08:14 Est GFR (Non-Af Amer) > 60 06/03/17 08:14 Random Glucose 94 mg/dL (75-110) 06/03/17 08:14 Calcium 8.2 mg/dl (8.6-10.4) L 06/03/17 08:14 Total Bilirubin 0.7 mg/dL (0.2-1.3) 06/03/17 08:14 AST 23 U/L (17-59) 06/03/17 08:14 ALT 58 U/L (21-72) 06/03/17 08:14 Alkaline Phosphatase 48 U/L (38-126) 06/03/17 08:14 Total Protein 7.0 g/dL (6.3-8.3) 06/03/17 08:14 Albumin 3.5 g/dL (3.5-5.0) D 06/03/17 08:14 Globulin 3.4 gm/dL (2.2-3.9) 06/03/17 08:14 Albumin/Globulin Ratio 1.0 (1.0-2.1) 06/03/17 08:14 Lipase 157 U/L (23-300) 06/02/17 11:31 Urine Color Yellow (YELLOW) 06/02/17 12:56 Urine Clarity Clear (Clear) 06/02/17 12:56 Urine pH 6.0 (5.0-8.0) 06/02/17 12:56 Ur Specific [place] 1.024 (1.003-1.030) 06/02/17 12:56 Urine Protein 2+ mg/dL (NEGATIVE) H 06/02/17 12:56 Urine Glucose (UA) Normal mg/dL (Normal) 06/02/17 12:56 Urine Ketones Negative mg/dL (NEGATIVE) 06/02/17 12:56 Urine Blood Negative (NEGATIVE) 06/02/17 12:56 Urine Nitrate Negative (NEGATIVE) 06/02/17 12:56 Urine Bilirubin Negative (NEGATIVE) 06/02/17 12:56 Urine Urobilinogen Normal mg/dL (0.2-1.0) 06/02/17 12:56 Ur Leukocyte Esterase Neg Jeanne/uL (Negative) 06/02/17 12:56 Urine WBC (Auto) 2 /hpf (0-5) 06/02/17 12:56 Urine RBC (Auto) 1 /hpf (0-3) 06/02/17 12:56 Blood Type A POSITIVE 06/02/17 14:43 Blood Type Confirm A POSITIVE 06/02/17 14:43 Antibody Screen Negative 06/02/17 14:43 - Hospital Course Hospital Course: 47 M with PMH of Bladder CA and HLD presents to [facility] ED with complaint of RLQ abdominal pain. Patients states that pain began at 4 am Saturday morning. He reports sudden onset. He states that he had a similar pain a few months ago. He reports associated nausea, fever and chills. He rates pain as moderate in severity. He describes pain as constant and sharp that started in RLQ and progressed to umbilical region. Denies alleviating or exacerbating factors. Patient reports no other complaints. Ct scan was done and showed enlarged fluid filled appendix. Patient also had eleveated WBC. Patient was taken to OR that same afternoon. Patient s/p Laparoscopic Appendectomy. He was tolerating liquid that evening. Next day, patient was tolerating regular diet and pain was controlled. He was all set to be discharged but developed a fever of 101 so he was kept for one more evening. The following day, patient remained afebrile for 24 hrs, tolerating diet, and ambulating without difficulty. At that time, it was determined that patient was stable for discharge to home by Dr. Dobbs. Discharge Exam - Head Exam Head Exam: ATRAUMATIC, NORMOCEPHALIC - Eye Exam Eye Exam: EOMI, Normal appearance, PERRL - ENT Exam ENT Exam: Mucous Membranes Moist - Respiratory Exam Respiratory Exam: NORMAL BREATHING PATTERN - Cardiovascular Exam Cardiovascular Exam: REGULAR RHYTHM - GI/Abdominal Exam GI & Abdominal Exam: Normal Bowel Sounds, Soft, Unremarkable. absent: Distended , Firm, Guarding, Rebound, Tenderness Additional comments: dressing clean, dry, and intact - Extremities Exam Extremities exam: normal capillary refill, pedal pulses present - Back Exam Back exam: absent: CVA tenderness (L), CVA tenderness (R) - Neurological Exam Neurological exam: Alert, CN II-XII Intact, Oriented x3 - Psychiatric Exam Psychiatric exam: Normal Affect, Normal Mood - Skin Skin Exam: Dry, Intact, Normal Color, Warm Discharge Plan - Follow Up Plan Condition: STABLE Disposition: HOME/ ROUTINE Instructions: Cephalexin (By mouth), Oxycodone/Acetaminophen (By mouth), Laxative, Stool Softeners (By mouth), Appendicitis (DC) Additional Instructions: Regular Diet Rxs in chart, finish antibiotic. use pain med if needed otherwise you may use ibuprofen or tylenol. Call for fever more than 101 or pain uncontrolled by medications. Ok to Shower, no baths, keep dressings dry. Ok to remove dressings in 3 days. Follow up with Dr. Dobbs in 1-2 weeks in his office No heavy lifting more than 10-15 pounds for 2 weeks. Referrals: Brian Dobbs MD [Staff Provider] -
[2017-06-04 16:07] VITALS: BP 139/82; PULSE 94; RESP 20; TEMP 97.2; O2SAT 96
== END 2017-06-04 17:08 | disposition home or self-care (01) ==
LOC: C.ER 10:12 → INTOOBSV 14:20 → C.9E 14:20 → C.6T 15:44
PROVIDERS: ADMIT Surgery Surgical Critical Care; ATTEND Surgery Surgical Critical Care
DX: K35.3 Acute appendicitis with localized peritonitis (principal); E78.5 Hyperlipidemia, unspecified; E78.00 Pure hypercholesterolemia, unspecified; Z85.51 Personal history of malignant neoplasm of bladder
CPT/HCPCS: 36415; 44970; 74177; 80053; 81001; 83690; 85025; 85027; 85610; 85730; 86850; 86900; 88304; 93005; 96374; 96375; 96376; 99285; C9113; G0378; J0690; J1170; J2001; J2175; J2250; J2270; J2405; J2543; J2704; J2710; J3010; J7030; J7120; Q9966; Q9967